=== PATIENT | female | born 1965 | race Caucasian/White ===

== ENCOUNTER 2017-05-05 13:09 | Emergency (ER) | payer OTHER, SELFPAY ==
[2017-05-05] MEDS ORDERED: DUONEB 0.5-3 MG/3 ml Neb IH ONE (13:46)
[2017-05-05] MEDS ORDERED: Zosyn 3.375GM/100 Ml D5W 3.375 GM/100 ML IVPB IV ONE ×2 (14:02→14:11)
--- NOTE | 2017-05-05 14:07 | ERPHSYRPT ---
- History of Present Illness Time Seen by Provider: 05/05/17 13:55 Source: patient Exam Limitations: clinical condition Patient Subjective Stated Complaint: PT REPORTS INCREASED SOB WITH UNPRODUCTIVE COUGH-STATES SHE CAN NOT GET A DEEP BREATH Triage Nursing Assessment: PT PINK WARM ET [id number] TO COMPELTE SENTENCES-RETRACTIONS NOTED-DIMINISHED ET WHEEZING Physician History: PATIENT WITH A HISTORY OR 30 PACK YEAR SMOKER COMPLAINS OF DIFFICULTY BREATHING , SHORTNESS OF BREATH AND A NONPRODUCTIVE COUGH FOR 3 WEEKS. DENIES CHEST PAIN OR FEVER. HAS NO RELIEF AFTER USING AN INHALER. Activities at Onset: activity Severity of Dyspnea-Max: severe Severity of Dyspnea-Current: severe Possible Cause: occasional episodes Modifying Factors: Improves With: coughing, deep breath, exertion Associated Symptoms: cough International travel in last 2 weeks: No Allergies/Adverse Reactions: No Known Drug Allergies Allergy (Verified 05/05/17 13:51) Home Medications: Alprazolam [Xanax 0.25 mg] 0.25 mg PO HS 07/27/14 [History] Hx Tetanus, Diphtheria Vaccination/Date Given: Yes Hx Influenza Vaccination/Date Given: No Hx Pneumococcal Vaccination/Date Given: No Immunizations Up to Date: Yes - Review of Systems Constitutional: No Fever, No Chills Eyes: No Symptoms Ears, Nose, & Throat: No Symptoms Respiratory: Cough, Dyspnea, Dyspnea on Exertion (CULP), Wheezing Cardiac: Orthopnea, No Chest Pain, No Edema, No Syncope Abdominal/Gastrointestinal: No Symptoms, No Abdominal Pain, No Nausea, No Vomiting, No Diarrhea Genitourinary Symptoms: No Symptoms, No Dysuria Musculoskeletal: No Symptoms, No Back Pain, No Neck Pain Skin: No Rash Neurological: No Dizziness, No Focal Weakness, No Sensory Changes Psychological: No Symptoms Endocrine: No Symptoms All Other Systems: Reviewed and Negative - Past Medical History Pertinent Past Medical History: Yes Neurological History: Migraines ENT History: No Pertinent History Cardiac History: Angina Respiratory History: No Pertinent History Endocrine Medical History: No Pertinent History Musculoskeletal History: Other GI Medical History: GERD History: No Pertinent History Psycho-Social History: Anxiety Female Reproductive Disorders: Ovarian Cancer Other Medical History: STRESS TEST <6MO AGO - Past Surgical History Past Surgical History: Yes Neuro Surgical History: No Pertinent History Cardiac: No Pertinent History Respiratory: No Pertinent History Gastrointestinal: No Pertinent History Genitourinary: No Pertinent History Musculoskeletal: No Pertinent History Female Surgical History: Section, Hysterectomy - Social History Smoking Status: Current every day smoker How long have you smoked: 30 Exposure to second hand smoke: Yes Alcohol Use: Socially Drug Use: methamphetamines Patient Lives Alone: No Significant Family History: other (migraines) - Female History Hx Now: No - Nursing Vital Signs Nursing Vital Signs: Initial Vital Signs O2 Sat by Pulse Oximetry 99 05/05/17 13:15 Pain Scale Pain Intensity 4 - Physical Exam General Appearance: mild distress Eye Exam: PERRL/EOMI Ears, Nose, Throat Exam: hearing grossly normal Neck Exam: normal inspection, supple Respiratory Exam: diminished breath sounds, prolonged expirations, wheezing ( DIFFUSE WHEEZES WITH RHONCHI), other (MODERATE TACHYPNEA, NO ACCESSORY MUSCLT USE) Cardiovascular/Chest Exam: normal heart sounds, regular rate/rhythm Abdominal/Gastrointestinal Exam: soft, normal bowel sounds, No tenderness, No distention, No mass Extremity Exam: non-tender, normal range of motion, normal inspection, no calf tenderness, no pedal edema Peripheral Pulses Exam: carotid (R): 2+, carotid (L): 2+, femoral (R): 2+, femoral (L): 2+, dorsalis-pedis (R): 2+, dorsalis-pedis (L): 2+ Neurologic Exam: alert, oriented x 3, cooperative, reporting specialist II-XII nml as tested, sensation nml, No motor deficits Skin Exam: normal color, warm, No dry SpO2 Interpretation: normal SpO2: 98 Oxygen Delivery: Nasal Cannula - Radiology Exams Chest X-ray Interpretation: Interpreted by me, Negative, No Infiltrates Ordered Tests: Active Orders 24 hr Category Date Time Status Counselor At Law STAT Care 05/05/17 14:01 Active EKG-ER Only STAT Care 05/05/17 14:14 Active IV Insertion STAT Care 05/05/17 13:59 Active Oxygen-ED Only NASAL CANNULA 2 lpm Care 05/05/17 14:00 Active CHEST 2 VIEWS (PA AND LAT) Stat Exams 05/05/17 14:14 Taken BLOOD CULTURE Stat Lab 05/05/17 14:20 Received CBC W DIFF Stat Lab 05/05/17 14:15 Completed CMP Stat Lab 05/05/17 14:15 Completed MAGNESIUM Stat Lab 05/05/17 14:15 Completed Peak Expiratory Flow Rate ONCE RT 05/05/17 14:19 Active Respiratory Nebulizer STAT RT 05/05/17 14:18 Active Medication Summary Discontinued Medications Generic Name Dose Route Start Last Admin Trade Name Rosaura PRN Reason Stop Dose Admin Albuterol Sulfate 10 mg 05/05/17 14:14 Proventil 2.5 Mg/3 Ml Neb IH 05/05/17 14:15 STAT ONE Albuterol/Ipratropium Confirm 05/05/17 13:46 Duoneb 0.5-3 Mg/3 Ml Neb Administered 05/05/17 13:47 Dose 3 ml IH .STK-MED ONE Piperacillin Sod/Tazobactam Sod 3.375 gm in 100 mls @ 200 mls/hr 05/05/17 14: 02 05/05/17 14:15 Zosyn 3.375gm/100 Ml D5w IV 05/05/17 14:31 200 mls/hr STAT ONE Administration Piperacillin Sod/Tazobactam Sod Confirm 05/05/17 14:11 Zosyn 3.375gm/100 Ml D5w Administered 05/05/17 14:12 Dose 3.375 gm in 100 mls @ ud IV .STK-MED ONE Sodium Chloride 1,000 mls @ 999 mls/hr 05/05/17 14:14 05/05/17 15:00 Sodium Chloride 0.9% 1000 Ml IV 05/05/17 15:14 999 mls/hr .Q1H1M STA Administration Azithromycin 500 mg in 250 mls @ 250 mls/hr 05/05/17 14:14 05/05/17 15:01 Zithromax 500 Mg/ 250 Ml Nacl Premix IV 05/05/17 15:13 250 mls/hr STAT STA Administration Azithromycin Confirm 05/05/17 14:55 Zithromax 500 Mg/ 250 Ml Nacl Premix Administered 05/05/17 14:56 Dose 500 mg in 250 mls @ ud IV .STK-MED ONE Sodium Chloride Confirm 05/05/17 14:55 Sodium Chloride 0.9% 1000 Ml Administered 05/05/17 14:56 Dose 1,000 mls @ ud .ROUTE .STK-MED ONE Methylprednisolone Sodium Succinate 125 mg 05/05/17 14:14 05/05/17 15:01 Solu-Medrol 125 Mg IV 05/05/17 14:15 125 mg STAT ONE Administration Methylprednisolone Sodium Succinate Confirm 05/05/17 14:55 Solu-Medrol 125 Mg Administered 05/05/17 14:56 Dose 125 mg .ROUTE .STK-MED ONE Lab/Rad Data: Laboratory Result Diagrams 05/05/17 14:15 05/05/17 14:15 Laboratory Results 05/05/17 05/05/17 Range/Units 14:15 14:15 WBC 8.3 (4.0-10.5) K/mm3 RBC 4.55 (4.1-5.4) M/mm3 Hgb 13.9 (12.0-16.0) gm/dl Hct 40.5 (35-47) % MCV 89.0 (78-100) fl MCH 30.5 (26-32) pg MCHC 34.3 (32-36) g/dl RDW 12.7 (11.5-14.0) % Plt Count 282 (150-450) K/mm3 MPV 9.5 (6-9.5) fl Gran % 44.6 (36.0-66.0) % Lymphocytes % 40.0 (24.0-44.0) % Monocytes % 7.1 (0.0-12.0) % Eosinophils % 8.2 H (0.00-5.0) % Basophils % 0.1 (0.0-0.4) % Basophils # 0.01 (0-0.4) Sodium 142 (136-145) mEq/L Potassium 4.0 (3.5-5.1) mEq/L Chloride 105 (98-107) mEq/L Carbon Dioxide 25.0 (21-32) mEq/L Anion Gap 15.6 H (5-15) MEQ/L BUN 14 (9-20) mg/dL Creatinine 0.73 (0.55-1.30) mg/dl Estimated GFR > 60 ML/MIN Glucose 93 (70-110) MG/DL Calcium 9.4 (8.5-10.1) mg/dL Magnesium 2.0 (1.8-2.4) mg/dL Total Bilirubin 0.40 (0.2-1.0) mg/dL AST 28 (15-37) U/L ALT 43 (12-78) U/L Alkaline Phosphatase 99 (46-116) U/L Serum Total Protein 7.9 (6.4-8.2) gm/dL Albumin 4.2 (3.4-5.0) g/dL - Progress Progress Note: 05/05/17 14:26 ADMINISTERED A DUO NEB AEROSOL TX FOLLOWED BY A CONTINUOUS ALBUTEROL 10MG OVER 1 HOUR, IV NORMAL SALINE 1 LILTER BOLUS OVER 1 HOUR, SOLUMEDROL 125MG IV, BLOOD CULTURES X 2 ZOSYN 3.375GM AND ZITHROMAX 500MG IVPB. PEAK FLOW PRE-300, POST-315 05/05/17 16:55 SENT HOME WITH NEBULIZER MACHINE 05/05/17 17:02 Counseled pt/family regarding: lab results, diagnosis, need for follow-up, rad results - Departure Time of Disposition: 17:10 Departure Disposition: Home Clinical Impression: ACUTE BRONCHITIS WITH BRONCHIOSPASM Condition: Stable Critical Care Time: No Referrals: ADRIANA KIRKPATRICK MD [Primary Care Provider] - Additional Instructions: BEGIN ALBUTEROL AEROSOL TREATMENTS EVERY 4 HOURS FOR BREATHING DIFFICULTY. PREDNISONE 20MG, 2 TABLETS DAILY FOR 5 DAYS. ANTIBIOTIC AUGMENTIN 875MG TWICE DAILY FOR 10 DAYS. TAKE OVER THE COUNTER EXPECTORANT COUGH SYRUP EVERY 4 HOURS NEEDED. CONSULT YOUR PRIMARY CARE PHYSICIAN TOMORROW TO SCHEDULE APPOINTMENT. Prescriptions: Albuterol 2.5 mg/3 ml Neb [Proventil 2.5 mg/3 ml Neb] 2.5 mg IH Q4H PRN PRN #30 neb PRN Reason: DIFFICULTY BREATHING Amox Tr/Potass Clav. 875 mg [Augmentin 875-125 Tablet] 875 mg PO BID #20 tablet Prednisone 20 mg [Deltasone 20 mg] 2 tab PO DAILY #10 tablet
[2017-05-05] MEDS ORDERED: PROVENTIL 2.5 MG/3 ML NEB IH ONE (14:14)
[2017-05-05] MEDS ORDERED: Sodium Chloride 0.9% 1000 ML 1,000 ML IV STA (14:14)
[2017-05-05] MEDS ORDERED: Zithromax 500 MG/ 250 ML NaCl Premix 500 MG/250 ML IVPB IV STA (14:14)
[2017-05-05] MEDS ORDERED: solu-MEDROL 125 MG IV ONE (14:14)
[2017-05-05 14:36] LABS: BASOPHIL % 0.1 % (0.0-0.4); Eosinophil % 8.2 % (0.00-5.0); Granulocytes % 44.6 % (36.0-66.0); Mean Corpuscular Hemoglobin 30.5 pg (26-32); Mean Platelet Volume 9.5 fl (6-9.5); Monocytes % 7.1 % (0.0-12.0); Platelet Count 282 K/mm3 (150-450); Red Blood Count 4.55 M/mm3 (4.1-5.4); Red Cell Distribution Width 12.7 % (11.5-14.0); White Blood Count 8.3 K/mm3 (4.0-10.5)
[2017-05-05] MEDS ORDERED: Zithromax 500 MG/ 250 ML NaCl Premix 500 MG/250 ML IVPB IV ONE (14:55)
[2017-05-05] MEDS ORDERED: Sodium Chloride 0.9% 1000 ML 1,000 ML ONE (14:55)
[2017-05-05] MEDS ORDERED: solu-MEDROL 125 MG ONE (14:55)
[2017-05-05 14:57] LABS: ALBUMIN 4.2 g/dL (3.4-5.0); ALKALINE PHOSPHATASE 99 U/L (46-116); ANION GAP 15.6 MEQ/L (5-15); BLOOD UREA NITROGEN 14 mg/dL (9-20); CHLORIDE 105 mEq/L (98-107); Glucose 93 MG/DL (70-110); SGOT/AST 28 U/L (15-37); SGPT/ALT 43 U/L (12-78); SODIUM 142 mEq/L (136-145); Total Protein 7.9 gm/dL (6.4-8.2)
[2017-05-05 15:56] VITALS: BP 121/84; PULSE 76
[2017-05-05 17:19] VITALS: O2SAT 98
--- NOTE | 2017-05-05 20:56 | XRAY ---
Indication: Short of breath. Comparison: December 17, 2014. PA/lateral chest again demonstrates normal heart and lungs. Bony thorax intact.
== END 2017-05-05 17:50 | disposition home or self-care (01) ==
LOC: ED 13:09
DX: J20.9 Acute bronchitis, unspecified (principal); R05 Cough; R06.00 Dyspnea, unspecified; R06.2 Wheezing; F17.200 Nicotine dependence, unspecified, uncomplicated
CPT/HCPCS: 36000; 36415; 71020; 80053; 83735; 85025; 87040; 93005; 93041; 94150; 94640; 96360; 96361; 96365; 96366; 96367; 96374; 99285; J0456; J2543; J2930; A9270-GY

== ENCOUNTER 2018-02-04 15:08 | Inpatient (IN) | payer OTHER ==
[2018-02-04] MEDS ORDERED: DUONEB 0.5-3 MG/3 ml Neb IH ONE ×4 (15:27→16:18)
[2018-02-04] MEDS ORDERED: solu-MEDROL 125 MG IV ONE (15:36)
[2018-02-04] MEDS ORDERED: solu-MEDROL 125 MG ONE (15:56)
--- NOTE | 2018-02-04 16:03 | ERPHSYRPT ---
- History of Present Illness Time Seen by Provider: 02/04/18 15:36 Source: patient Exam Limitations: no limitations Patient Subjective Stated Complaint: increasing sob over the past 7 days. hx pleurisy in the recent past. has been using neb and inhaler at home without relief. denies fever. sharp pain to right lat ribs when coughing. Triage Nursing Assessment: ambulated to room per self. skin w/d, color normal, resp labored at 24. exp wheezes throughout. occ dry cough. Physician History: Pt has been c/o nonproductive cough, increasing SOB for 7 days, denies fever, chills, chest pain, nausea, vomiting, other complaints. She denies cardiac problems, once she had cardiac catheterization 5 years ago, it was negative. She has been suing her Albuterol inhaler and nebulizer regularly, but no relief , she became worse today. Timing/Duration: day(s) (7) Activities at Onset: none Severity of Dyspnea-Max: moderate Severity of Dyspnea-Current: moderate Possible Cause: occasional episodes Modifying Factors: Improves With: albuterol inhaler, albuterol nebulizer Associated Symptoms: cough, wheezing Allergies/Adverse Reactions: No Known Drug Allergies Allergy (Verified 02/04/18 15:26) Home Medications: Albuterol Sulfate [Ventolin Hfa] 8 gm IH QID 02/04/18 [History] Duloxetine HCl 30 mg [Cymbalta 30 MG Capsule] 30 mg PO BID 02/04/18 [ History] Hydrocodone/Acetaminophen [Hydrocodon-Acetaminophen 5-325] 1 each .ROUTE Q6HPRN PRN 02/04/18 [History] Loratadine 10 mg [Claritin 10 mg] 10 mg PO DAILY 02/04/18 [History] Hx Tetanus, Diphtheria Vaccination/Date Given: Yes Hx Influenza Vaccination/Date Given: No Hx Pneumococcal Vaccination/Date Given: Yes - Review of Systems Constitutional: No Symptoms Ears, Nose, & Throat: Ear Pain Respiratory: Cough, Dyspnea All Other Systems: Reviewed and Negative - Past Medical History Pertinent Past Medical History: Yes Neurological History: Migraines ENT History: No Pertinent History Cardiac History: Angina Respiratory History: No Pertinent History Endocrine Medical History: No Pertinent History Musculoskeletal History: Other GI Medical History: GERD History: No Pertinent History Psycho-Social History: Anxiety Female Reproductive Disorders: Ovarian Cancer Other Medical History: STRESS TEST <6MO AGO - Past Surgical History Past Surgical History: Yes Neuro Surgical History: No Pertinent History Cardiac: No Pertinent History Respiratory: No Pertinent History Gastrointestinal: No Pertinent History Genitourinary: No Pertinent History Musculoskeletal: No Pertinent History Female Surgical History: Section, Hysterectomy - Social History Smoking Status: Former smoker How long have you smoked: 30 Exposure to second hand smoke: Yes Alcohol Use: Socially Drug Use: methamphetamines Patient Lives Alone: No Significant Family History: other (migraines) - Female History Hx Now: No - Nursing Vital Signs Nursing Vital Signs: Initial Vital Signs Temperature 98.5 F 02/04/18 15:18 Pulse Rate 94 H 02/04/18 15:18 Respiratory Rate 24 02/04/18 15:18 Blood Pressure 142/83 02/04/18 15:18 O2 Sat by Pulse Oximetry 92 L 02/04/18 15:18 Pain Scale Pain Intensity 6 - Physical Exam General Appearance: no apparent distress Eye Exam: eyes nml inspection Ears, Nose, Throat Exam: hearing grossly normal, normal ENT inspection, normal pharynx, No abnormal TM (R), No abnormal TM (L) Neck Exam: normal inspection, non-tender, supple, No carotid bruit, No JVD Respiratory Exam: chest tenderness, airway intact, rhonchi, wheezing (bilateral end expiratory rhonchi and wheezing), No respiratory distress, No accessory muscle use Cardiovascular/Chest Exam: normal heart sounds, regular rate/rhythm, normal peripheral pulses, No murmur, No edema, No JVD Abdominal/Gastrointestinal Exam: soft, normal bowel sounds, No tenderness Extremity Exam: non-tender, no pedal edema, No no calf tenderness, No mine's sign Peripheral Pulses Exam: dorsalis-pedis (R): 3+, dorsalis-pedis (L): 3+ Neurologic Exam: alert, oriented x 3, cooperative, normal mood/affect Skin Exam: normal color, warm, dry, No rash Lymphatic Exam: No adenopathy SpO2 Interpretation: normal SpO2: 95 Oxygen Delivery: Room Air - Course Nursing assessment & vital signs reviewed: Yes EKG Interpreted by Me: RATE (84/min), NORMAL AXIS, NORMAL INTERVALS, Non- specific ST Changes - Radiology Exams Chest X-ray Interpretation: Interpreted by me, Reviewed by me, Negative Ordered Tests: Active Orders 24 hr Category Date Time Status [place] Supervisor STAT Care 02/04/18 15:37 Active EKG-ER Only STAT Care 02/04/18 15:36 Active EKG-ER Only STAT Care 02/04/18 18:06 Active IV Insertion STAT Care 02/04/18 15:36 Active Oxygen-ED Only NASAL CANNULA 2 lpm Care 02/04/18 15:36 Active CHEST 1 VIEW (PORTABLE) Stat Exams 02/04/18 15:37 Completed ARTERIAL BLOOD GASES Stat Lab 02/04/18 18:30 Results BLOOD CULTURE Stat Lab 02/04/18 16:06 Received CBC W DIFF Stat Lab 02/04/18 16:10 Completed CMP Stat Lab 02/04/18 16:10 Completed D-DIMER QUANTITATION Stat Lab 02/04/18 16:49 Completed Lactic Acid Stat Lab 02/04/18 16:25 Completed MAGNESIUM Stat Lab 02/04/18 16:10 Completed NT PRO BNP Stat Lab 02/04/18 16:10 Completed TROPONIN Q3H Lab 02/04/18 16:10 Completed TROPONIN Q3H Lab 02/04/18 18:45 Ordered TROPONIN Q3H Lab 02/04/18 21:45 Ordered TROPONIN Q3H Lab 02/05/18 00:45 Ordered TROPONIN Q3H Lab 02/05/18 03:45 Ordered Respiratory Nebulizer STAT RT 02/04/18 15:33 Completed Respiratory Nebulizer STAT RT 02/04/18 15:37 Completed Medication Summary Discontinued Medications Generic Name Dose Route Start Last Admin Trade Name Freq PRN Reason Stop Dose Admin Albuterol/Ipratropium Confirm 02/04/18 15:27 Duoneb 0.5-3 Mg/3 Ml Neb Administered 02/04/18 15:28 Dose 3 ml IH .STK-MED ONE Albuterol/Ipratropium 3 ml 02/04/18 15:32 02/04/18 15:33 Duoneb 0.5-3 Mg/3 Ml Neb IH 02/04/18 15:33 3 ml STAT ONE Administration Albuterol/Ipratropium 3 ml 02/04/18 15:36 02/04/18 16:21 Duoneb 0.5-3 Mg/3 Ml Neb IH 02/04/18 15:37 3 ml STAT ONE Administration Albuterol/Ipratropium Confirm 02/04/18 16:18 Duoneb 0.5-3 Mg/3 Ml Neb Administered 02/04/18 16:19 Dose 3 ml IH .STK-MED ONE Ketorolac Tromethamine 30 mg 02/04/18 16:49 02/04/18 17:06 Toradol 30 Mg Injection IV 02/04/18 16:50 30 mg STAT ONE Administration Ketorolac Tromethamine Confirm 02/04/18 17:05 Toradol 30 Mg Injection Administered 02/04/18 17:06 Dose 30 mg .ROUTE .STK-MED ONE Methylprednisolone Sodium Succinate 125 mg 02/04/18 15:36 02/04/18 16:02 Solu-Medrol 125 Mg IV 02/04/18 15:37 125 mg STAT ONE Administration Methylprednisolone Sodium Succinate Confirm 02/04/18 15:56 Solu-Medrol 125 Mg Administered 02/04/18 15:57 Dose 125 mg .ROUTE .STK-MED ONE Lab/Rad Data: Laboratory Result Diagrams 02/04/18 16:10 02/04/18 16:10 Laboratory Results 02/04/18 02/04/18 02/04/18 Range/Units 18:30 16:49 16:25 WBC (4.0-10.5) K/mm3 RBC (4.1-5.4) M/mm3 Hgb (12.0-16.0) gm/dl Hct (35-47) % MCV (78-100) fl MCH (26-32) pg MCHC (32-36) g/dl RDW (11.5-14.0) % Plt Count (150-450) K/mm3 MPV (6-9.5) fl Gran % (36.0-66.0) % Eos # (Auto) (0-0.5) Absolute Lymphs (auto) (1.0-4.6) Absolute Monos (auto) (0.0-1.3) Lymphocytes % (24.0-44.0) % Monocytes % (0.0-12.0) % Eosinophils % (0.00-5.0) % Basophils % (0.0-0.4) % Absolute Granulocytes (1.4-6.9) Basophils # (0-0.4) D-Dimer 312 (215-500) ng/mL Puncture Site Pending pCO2 38 (35-45) mmHg pO2 64 L (75-100) mmHg Base Excess 1.7 (-2.0-2.0) O2 Saturation 92.7 L (94-100) g/dF ABG pH 7.44 (7.35-7.45) ABG HCO3 25.8 (22-28) ABG O2 Sat (Measured) 95.9 (95-100) % Lebron Test Pending A-a Gradient 38 a/A Ratio 0.63 Hemoglobin 13.6 Carboxyhemoglobin 2.0 (0.0-6.9) % THgb Methemoglobin 1.2 L (1.4-1.5) % Temperature 37.0 C POC O2 Flow Rate 21 % Sodium (137-145) mmol/L Potassium 3.7 (3.5-5.1) mmol/L Chloride (98-107) mmol/L Carbon Dioxide (22-30) mmol/L Anion Gap (5-15) MEQ/L BUN (7-17) mg/dL Creatinine (0.52-1.04) mg/dL Estimated GFR ML/MIN Glucose (74-106) mg/dL Lactic Acid 1.1 (0.4-2.0) Calcium (8.4-10.2) mg/dL Magnesium (1.6-2.3) mg/dL Total Bilirubin (0.2-1.3) mg/dL AST (14-36) U/L ALT (0-35) U/L Alkaline Phosphatase (38-126) U/L Troponin I (0.000-0.034) ng/mL NT-Pro-B Natriuret Pep (0-900) pg/mL Serum Total Protein (6.3-8.2) g/dL Albumin (3.5-5.0) g/dL 02/04/18 02/04/18 02/04/18 Range/Units 16:10 16:10 16:10 WBC 9.9 (4.0-10.5) K/mm3 RBC 4.53 (4.1-5.4) M/mm3 Hgb 13.6 (12.0-16.0) gm/dl Hct 40.2 (35-47) % MCV 88.7 (78-100) fl MCH 30.0 (26-32) pg MCHC 33.8 (32-36) g/dl RDW 13.1 (11.5-14.0) % Plt Count 312 (150-450) K/mm3 MPV 9.1 (6-9.5) fl Gran % 44.1 (36.0-66.0) % Eos # (Auto) 1.25 H (0-0.5) Absolute Lymphs (auto) 3.45 (1.0-4.6) Absolute Monos (auto) 0.80 (0.0-1.3) Lymphocytes % 34.9 (24.0-44.0) % Monocytes % 8.1 (0.0-12.0) % Eosinophils % 12.6 H (0.00-5.0) % Basophils % 0.3 (0.0-0.4) % Absolute Granulocytes 4.36 (1.4-6.9) Basophils # 0.03 (0-0.4) D-Dimer (215-500) ng/mL Puncture Site pCO2 (35-45) mmHg pO2 (75-100) mmHg Base Excess (-2.0-2.0) O2 Saturation (94-100) g/dF ABG pH (7.35-7.45) ABG HCO3 (22-28) ABG O2 Sat (Measured) (95-100) % Lebron Test A-a Gradient a/A Ratio Hemoglobin Carboxyhemoglobin (0.0-6.9) % THgb Methemoglobin (1.4-1.5) % Temperature C POC O2 Flow Rate % Sodium 142 (137-145) mmol/L Potassium 3.8 (3.5-5.1) mmol/L Chloride 104 (98-107) mmol/L Carbon Dioxide 26 (22-30) mmol/L Anion Gap 15.6 H (5-15) MEQ/L BUN 16 (7-17) mg/dL Creatinine 0.61 (0.52-1.04) mg/dL Estimated GFR > 60.0 ML/MIN Glucose 98 (74-106) mg/dL Lactic Acid (0.4-2.0) Calcium 10.0 (8.4-10.2) mg/dL Magnesium 2.0 (1.6-2.3) mg/dL Total Bilirubin 0.50 (0.2-1.3) mg/dL AST 31 (14-36) U/L ALT 33 (0-35) U/L Alkaline Phosphatase 98 (38-126) U/L Troponin I < 0.012 (0.000-0.034) ng/mL NT-Pro-B Natriuret Pep 47.3 (0-900) pg/mL Serum Total Protein 8.2 (6.3-8.2) g/dL Albumin 4.8 (3.5-5.0) g/dL - Progress Progress: improved Air Movement: good Progress Note: 02/04/18 19:09 Improved after iv Solumedrol and Duoneb treatment x2, she has been afebrile, no severe distress,I called Dr Horn, covering dr Kirkpatrick, labs and ABG reviewed with her, she agreed to admit this patient for observation. I informed patient, she agreed. Blood Culture(s) Obtained: Yes Antibiotics given: Yes Discussed with : Kory Will see patient in: hospital (observation) Counseled pt/family regarding: lab results, diagnosis, need for follow-up, rad results - Departure Time of Disposition: 19:12 Departure Disposition: Observation Clinical Impression: COPD (chronic obstructive pulmonary disease) with acute bronchitis Condition: Stable Critical Care Time: No Referrals: ADRIANA KIRKPATRICK MD [Primary Care Provider] - Instructions: Chronic Obstructive Pulmonary Disease
--- NOTE | 2018-02-04 16:08 | XRAY ---
Indication: Dyspnea. Comparison: September 23, 2017. Portable apical lordotic chest again demonstrates normal heart and lungs. Bony thorax intact. No new/acute findings.
[2018-02-04 16:31] LABS: BASOPHIL % 0.3 % (0.0-0.4); Basophil (Absolute #) 0.03 (0-0.4); Eosinophil % 12.6 % (0.00-5.0); Eosinophil (Absolute #) 1.25 (0-0.5); Granulocyte Absolute (ANC) 4.36 (1.4-6.9); Granulocytes % 44.1 % (36.0-66.0); Hematocrit 40.2 % (35-47); Hemoglobin 13.6 gm/dl (12.0-16.0); Lymphocyte (Absolute #) 3.45 (1.0-4.6); Lymphocytes % 34.9 % (24.0-44.0); Mean Cell Volume 88.7 fl (78-100); Mean Corpuscular Hgb Concent. 33.8 g/dl (32-36); Mean Platelet Volume 9.1 fl (6-9.5); Monocytes % 8.1 % (0.0-12.0); Platelet Count 312 K/mm3 (150-450); Red Blood Count 4.53 M/mm3 (4.1-5.4); Red Cell Distribution Width 13.1 % (11.5-14.0); White Blood Count 9.9 K/mm3 (4.0-10.5)
[2018-02-04 16:49] LABS: ALBUMIN 4.8 g/dL (3.5-5.0); ALKALINE PHOSPHATASE 98 U/L (38-126); ANION GAP 15.6 MEQ/L (5-15); BLOOD UREA NITROGEN 16 mg/dL (7-17); CHLORIDE 104 mmol/L (98-107); Carbon Dioxide 26 mmol/L (22-30); Creatinine 1 0.61 mg/dL (0.52-1.04); Glucose 98 mg/dL (74-106); Potassium 3.8 mmol/L (3.5-5.1); SGOT/AST 31 U/L (14-36); SGPT/ALT 33 U/L (0-35); SODIUM 142 mmol/L (137-145); Total Protein 8.2 g/dL (6.3-8.2)
[2018-02-04] MEDS ORDERED: TORAdol 30 mg Injection IV ONE (16:49)
[2018-02-04 16:58] LABS: NT PRO BNP 47.3 pg/mL (0-900)
[2018-02-04] MEDS ORDERED: TORAdol 30 mg Injection ONE (17:05)
[2018-02-04 18:37] LABS: A-aADO2 38; ABG HEMOGLOBIN 13.6; ABG POTASSIUM 3.7 (3.5-5.1); ARTERIAL BLD GAS O2 SATURATION 95.9 % (95-100); ARTERIAL BLOOD GAS BASE EXCESS 1.7 (-2.0-2.0); ARTERIAL BLOOD GAS FIO2 21 %; ARTERIAL BLOOD GAS PCO2 38 mmHg (35-45); ARTERIAL BLOOD GAS PO2 64 mmHg (75-100); ARTERIAL BLOOD GAS pH 7.44 (7.35-7.45); HCO3- 25.8 (22-28); HGB O2 SAT 92.7 g/dF (94-100); Methhemoglobin 1.2 % (1.4-1.5); paO2 pAO1 0.63
[2018-02-04] MEDS ORDERED: Zithromax 500 MG/ 250 ML NaCl Premix 500 MG/250 ML IVPB IV STA (19:11)
[2018-02-04] MEDS ORDERED: Zithromax 500 MG/ 250 ML NaCl Premix 500 MG/250 ML IVPB IV ONE (19:19)
[2018-02-04] MEDS: DUONEB 0.5-3 MG/3 ml Neb IH SCH (22:09)
[2018-02-04] MEDS ORDERED: Cymbalta 30 MG Capsule ONE (22:41)
[2018-02-04] MEDS: NORCO 5/325 MG PO PRN (22:43)
[2018-02-04] MEDS: Pepcid 20 MG PO SCH (22:43)
[2018-02-05] MEDS: solu-MEDROL 125 MG IV SCH ×5 (00:23→23:13)
[2018-02-05 04:15] LABS: Hematocrit 37.2 % (35-47); Hemoglobin 12.5 gm/dl (12.0-16.0); Mean Cell Volume 89.4 fl (78-100); Mean Corpuscular Hgb Concent. 33.6 g/dl (32-36); Mean Platelet Volume 9.2 fl (6-9.5); Platelet Count 279 K/mm3 (150-450); Red Blood Count 4.16 M/mm3 (4.1-5.4); Red Cell Distribution Width 13.1 % (11.5-14.0)
[2018-02-05 04:31] LABS: ANION GAP 16.7 MEQ/L (5-15); BLOOD UREA NITROGEN 13 mg/dL (7-17); CHLORIDE 105 mmol/L (98-107); Calcium 9.6 mg/dL (8.4-10.2); Carbon Dioxide 23 mmol/L (22-30); Creatinine 1 0.51 mg/dL (0.52-1.04); Glucose 136 mg/dL (74-106); Potassium 4.3 mmol/L (3.5-5.1); SODIUM 140 mmol/L (137-145)
[2018-02-05 04:53] LABS: ABG SITE RIGHT RADIAL; ALLEN TEST OK? YES
[2018-02-05] MEDS ORDERED: PROVENTIL COMMON CANISTER IH PRN (07:00)
[2018-02-05] MEDS: DUONEB 0.5-3 MG/3 ml Neb IH SCH ×6 (07:26→23:07)
[2018-02-05] MEDS: NORCO 5/325 MG PO PRN ×3 (07:52→22:20)
[2018-02-05] MEDS: Pepcid 20 MG PO SCH ×2 (09:05→22:20)
[2018-02-05] MEDS: CLARITIN 10 MG PO SCH (09:05)
[2018-02-05] MEDS: Cymbalta 30 MG Capsule PO SCH ×2 (09:14→22:20)
[2018-02-05] MEDS ORDERED: Ventolin Hfa MDI IH SCH (10:00)
[2018-02-05] MEDS: ENOXAPARIN SODIUM SQ SCH (10:44)
[2018-02-05] MEDS: Zithromax 500 MG/ 250 ML NaCl Premix 500 MG/250 ML IVPB IV SCH (18:32)
[2018-02-05] MEDS ORDERED: Cymbalta 30 MG Capsule PO SCH (22:00)
[2018-02-06] MEDS: DUONEB 0.5-3 MG/3 ml Neb IH SCH ×6 (03:02→23:05)
[2018-02-06] MEDS: solu-MEDROL 125 MG IV SCH ×4 (05:24→23:52)
[2018-02-06] MEDS: NORCO 5/325 MG PO PRN ×3 (07:03→18:48)
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
--- NOTE | 2018-02-06 07:54 | PCM.HP ---
History of Present Illness - Chief Complaint Chief Complaint: Shortness of Breath History of Present Illness: is a 52 year old female who presented to the ER yesterday with several days of cough, shortness of breath and wheezing. She felt tight in her chest like she couldn't get enough air in her lungs and was winded with minimal exertion. Cough has been nonproductive, no fever. - Review of Systems Constitutional: No Fever, No Chills Respiratory: Cough, Short Of Breath, Wheezing Cardiac: No Chest Pain, No Edema, No Syncope Abdominal/Gastrointestinal: No Abdominal Pain, No Nausea, No Vomiting, No Diarrhea Genitourinary Symptoms: No Dysuria Skin: No Rash All Other Systems: Reviewed and Negative Medications & Allergies Home Medications: Home Medication List Albuterol 2.5 mg/3 ml Neb [Proventil 2.5 mg/3 ml Neb] 2.5 mg IH Q4H PRN PRN #30 neb 05/05/17 [Rx Confirmed 02/04/18] Albuterol Sulfate [Ventolin Hfa] 8 gm IH QID 02/04/18 [History Confirmed ] Duloxetine HCl 30 mg [Cymbalta 30 MG Capsule] 30 mg PO BID 02/04/18 [ History Confirmed 02/04/18] Hydrocodone/Acetaminophen [Hydrocodon-Acetaminophen 5-325] 1 each .ROUTE Q6HPRN PRN 02/04/18 [History Confirmed 02/04/18] Loratadine 10 mg [Claritin 10 mg] 10 mg PO DAILY 02/04/18 [History Confirmed 02/04/18] Allergies/Adverse Reactions: Allergies Allergy/AdvReac Type Severity Reaction Status Date / Time No Known Drug Allergies Allergy Verified 02/04/18 15:26 - Past Medical History Past Medical History: Yes Neurological History: Migraines ENT History: No Pertinent History Cardiac History: Angina Respiratory History: COPD Endocrine Medical History: No Pertinent History Musculoskelatal History: Other GI Medical History: GERD History: No Pertinent History Pyscho-Social History: Anxiety Reproductive Disorders: Ovarian Cancer Comment: STRESS TEST <6MO AGO - Female History Are you now?: No - Past Surgical History Past Surgical History: Yes Neuro Surgical History: No Pertinent History Cardiac History: No Pertinent History Respiratory Surgery: No Pertinent History GI Surgical History: No Pertinent History Genitourinary Surgical Hx: No Pertinent History Musculskeletal Surgical Hx: No Pertinent History Female Surgical History: Section, Hysterectomy - Social History Smoking Status: Former smoker How long have you smoked: 30 Exposure to second hand smoke: No Alcohol: Rarely Drug Use: methamphetamines Significant Family History: other (migraines) - Physical Exam Vital Signs: Vital Signs - 24 hr Temp Pulse Resp BP Pulse Ox 02/06/18 07:48 21 02/06/18 07:17 98 F 101 H 20 145/79 96 02/06/18 07:00 104 H 18 94 L 02/06/18 04:00 98.4 F 100 H 19 181/81 92 L 02/06/18 03:02 100 H 19 92 L 02/06/18 00:00 97.9 F 100 H 19 170/83 92 L 02/05/18 23:07 100 H 19 92 L 02/05/18 20:00 97.7 F 107 H 19 143/72 95 02/05/18 18:55 100 H 18 92 L 02/05/18 16:00 98.5 F 111 H 18 139/74 91 L 02/05/18 14:53 104 H 20 92 L 02/05/18 12:00 97.8 F 116 H 18 126/76 95 02/05/18 11:08 102 H 20 92 L General Appearance: no apparent distress, alert Eye Exam: PERRL/EOMI, eyes nml inspection Respiratory Exam: prolonged expirations, wheezing Cardiovascular Exam: regular rate/rhythm, normal heart sounds, normal peripheral pulses Gastrointestinal/Abdomen Exam: soft, normal bowel sounds, No tenderness, No mass Extremity Exam: normal inspection, normal range of motion, pelvis stable Skin Exam: normal color, warm, dry, No rash Results - Labs Lab/Micro Results: Microbiology 02/04/18 16:06 Blood Culture - Preliminary Blood NO GROWTH TO DATE 02/04/18 16:06 Blood Culture - Preliminary Blood NO GROWTH TO DATE - Radiology Impressions Radiology Exams & Impressions: Radiology Procedures Category Date Time Status CHEST 1 VIEW (PORTABLE) Stat Exams 02/04/18 15:37 Completed - Other Procedures and Tests Respiratory Therapy 02/05/18 07:00 Respiratory MDI UD Assessment/Plan (1) Acute exacerbation of chronic obstructive pulmonary disease (COPD) Current Visit: Yes Status: Acute Assessment & Plan: continue IV zithromax, solu medrol and nebulizer treatments. oxygen saturation ok on room air but significant wheezing present on lung exam Code(s): J44.1 - CHRONIC OBSTRUCTIVE PULMONARY DISEASE W (ACUTE) EXACERBATION
[2018-02-06] MEDS: Pepcid 20 MG PO SCH ×2 (09:24→22:37)
[2018-02-06] MEDS: ENOXAPARIN SODIUM SQ SCH (09:24)
[2018-02-06] MEDS: Cymbalta 30 MG Capsule PO SCH ×2 (09:24→22:37)
[2018-02-06] MEDS: CLARITIN 10 MG PO SCH (09:24)
[2018-02-06] MEDS: Zithromax 500 MG/ 250 ML NaCl Premix 500 MG/250 ML IVPB IV SCH (09:24)
[2018-02-06] MEDS ORDERED: CEPACOL SORE THROAT LOZENGE PO PRN (15:03)
[2018-02-06] MEDS: Tussionex Pennkinetic Susp PO PRN (15:16)
[2018-02-07] MEDS: DUONEB 0.5-3 MG/3 ml Neb IH SCH ×6 (03:08→23:10)
[2018-02-07] MEDS: NORCO 5/325 MG PO PRN ×3 (04:35→17:41)
[2018-02-07] MEDS: Tussionex Pennkinetic Susp PO PRN ×2 (04:42→16:18)
[2018-02-07] MEDS: solu-MEDROL 125 MG IV SCH ×4 (05:02→23:28)
--- NOTE | 2018-02-07 08:41 | PCM.NOTE ---
Date and Time: 02/07/18 0840 Subjective Assessment: still wheezing and not tolerating activity very well. notes some improvement since admission Objective Exam General Appearance: no apparent distress, alert Respiratory Exam: wheezing Cardiovascular Exam: regular rate/rhythm, normal heart sounds Gastrointestinal/Abdomen Exam: soft, No tenderness, No mass Extremity Exam: normal inspection, normal range of motion OBJECTIVE DATA Vital Signs: Vital Signs - 24 hr Temp Pulse Resp BP Pulse Ox 02/07/18 08:00 18 02/07/18 07:12 98.5 F 92 H 18 178/77 95 02/07/18 06:39 96 H 18 95 02/07/18 04:00 98.2 F 84 16 154/79 93 L 02/07/18 03:09 97 H 18 95 02/07/18 00:00 97.7 F 76 18 144/80 93 L 02/06/18 23:05 76 18 93 L 02/06/18 20:00 98.4 F 98 H 18 169/74 94 L 02/06/18 19:33 82 20 90 L 02/06/18 16:06 98.6 F 96 H 20 138/70 94 L 02/06/18 16:00 20 02/06/18 15:04 95 H 16 94 L 02/06/18 12:00 22 02/06/18 11:25 97.7 F 94 H 22 156/76 97 02/06/18 10:56 88 20 95 Pain Assessment - Last Documented Pain Intensity 5 Pain Scale Used 0-10 Pain Scale Intake and Output: Intake & Output 02/04/18 02/05/18 02/06/18 02/07/18 11:59 11:59 11:59 11:59 Intake Total 1780 4339 1980 Output Total 3000 3200 Balance 1780 1339 -1220 Weight 96.1 kg 96 kg 95 kg Multi-Disciplinary Progress Notes: Multi-Disciplinary Progress Notes 02/06/18 09:00 (created 02/06/18 13:35) Case Management Note by Marybel Avalos DISCHARGE PLAN REVIEWED, PROVIDES SELF CARE, INDEPENDENT WITH ALL ADL'S. PLANS TO RETURN HOME TO PRE EPISODIC LEVEL OF [facility]. Initialized on 02/06/18 13:35 - END OF NOTE Assessment/Plan (1) Acute exacerbation of chronic obstructive pulmonary disease (COPD) Current Visit: Yes Status: Acute Onset Date: ~02/04/18 Assessment & Plan: improving with IV solu medrol and zithromax, continue nebs. possibly will be ready for discharge tomorrow. Code(s): J44.1 - CHRONIC OBSTRUCTIVE PULMONARY DISEASE W (ACUTE) EXACERBATION
[2018-02-07] MEDS: CLARITIN 10 MG PO SCH (09:31)
[2018-02-07] MEDS: ENOXAPARIN SODIUM SQ SCH (09:31)
[2018-02-07] MEDS: Cymbalta 30 MG Capsule PO SCH ×2 (09:31→23:28)
[2018-02-07] MEDS: Zithromax 500 MG/ 250 ML NaCl Premix 500 MG/250 ML IVPB IV SCH (09:32)
[2018-02-07] MEDS: Pepcid 20 MG PO SCH ×2 (09:32→23:28)
[2018-02-08] MEDS: DUONEB 0.5-3 MG/3 ml Neb IH SCH ×3 (03:47→11:17)
[2018-02-08] MEDS: NORCO 5/325 MG PO PRN ×2 (05:42→11:36)
[2018-02-08] MEDS: solu-MEDROL 125 MG IV SCH ×2 (05:50→11:37)
[2018-02-08 06:15] LABS: ANION GAP 15.9 MEQ/L (5-15); BLOOD UREA NITROGEN 13 mg/dL (7-17); CHLORIDE 100 mmol/L (98-107); Calcium 9.5 mg/dL (8.4-10.2); Carbon Dioxide 29 mmol/L (22-30); Creatinine 1 0.46 mg/dL (0.52-1.04); Glucose 157 mg/dL (74-106); Granulocyte Absolute (ANC) 11.45 (1.4-6.9); Hematocrit 39.5 % (35-47); Hemoglobin 13.4 gm/dl (12.0-16.0); Mean Cell Volume 90.2 fl (78-100); Mean Corpuscular Hemoglobin 30.6 pg (26-32); Mean Corpuscular Hgb Concent. 33.9 g/dl (32-36); Mean Platelet Volume 9.2 fl (6-9.5); Platelet Count 305 K/mm3 (150-450); Potassium 3.4 mmol/L (3.5-5.1); Red Blood Count 4.38 M/mm3 (4.1-5.4); Red Cell Distribution Width 12.6 % (11.5-14.0); SODIUM 141 mmol/L (137-145); White Blood Count 13.9 K/mm3 (4.0-10.5)
[2018-02-08] MEDS ORDERED: TRANDATE 100 MG/20 ML MDV FOR DRIP IV PRN (08:30)
[2018-02-08] MEDS: Zithromax 500 MG/ 250 ML NaCl Premix 500 MG/250 ML IVPB IV SCH (09:00)
[2018-02-08] MEDS: CLARITIN 10 MG PO SCH (09:00)
[2018-02-08] MEDS: ENOXAPARIN SODIUM SQ SCH (09:00)
[2018-02-08] MEDS: Pepcid 20 MG PO SCH (09:01)
[2018-02-08] MEDS: Cymbalta 30 MG Capsule PO SCH (09:01)
[2018-02-08 10:12] LABS: BAND 3 % (0.0-2.0); Lymphocytes 18 % (24-44); Monocyte 3 % (0.0-12.0); Neutrophils 76 % (36.0-66.0); Platelet Estimate NORMAL (NORMAL); Total Cells Counted 100
[2018-02-08 11:35] VITALS: BP 155/80; PULSE 96; O2SAT 92
--- NOTE | 2018-02-08 13:47 | PCM.DS ---
Discharge Summary Date of Admission: 02/06/18 07:51 Admitting Physician: ADRIANA KIRKPATRICK Primary Care Provider: ADIRANA KIRKPATRICK Allergies Allergies No Known Drug Allergies Allergy (Verified 02/04/18 15:26) Hospital Summary - Hospital Course Hospital Course: Pt admitted with COPD exacerbation 2d ago on IV zithromax and solumedrol (80mg IV q6h). Improved over several days and this morning is feeling ready to d/c to home. Her breathing is better, not on any O2. She continues to cough. She works in [employer] so will plan to return to work in 5d (). - Vitals & Intake/Output Vital Signs: Vital Signs Temperature 98.3 F 02/08/18 11:34 Pulse Rate 96 H 02/08/18 11:34 Respiratory Rate 18 02/08/18 11:34 Blood Pressure 155/80 02/08/18 11:34 O2 Sat by Pulse Oximetry 92 L 02/08/18 11:34 Oxygen-Last Documented O2 Percentage 2 Liters = 28% Intake & Output: Intake & Output 02/06/18 02/07/18 02/08/18 02/09/18 11:59 11:59 11:59 11:59 Intake Total 4339 2460 1800 Output Total 3000 3600 1350 Balance 1339 -1140 450 Weight 96 kg 95 kg 95.6 kg - Lab Result Diagrams: 02/08/18 05:15 02/08/18 05:15 Lab Results-Last 24 Hrs: Lab Results-Last 24 Hours 02/08/18 02/08/18 Range/Units 05:15 05:15 WBC 13.9 H (4.0-10.5) K/mm3 RBC 4.38 (4.1-5.4) M/mm3 Hgb 13.4 (12.0-16.0) gm/dl Hct 39.5 (35-47) % MCV 90.2 (78-100) fl MCH 30.6 (26-32) pg MCHC 33.9 (32-36) g/dl RDW 12.6 (11.5-14.0) % Plt Count 305 (150-450) K/mm3 MPV 9.2 (6-9.5) fl Absolute Granulocytes 11.45 H (1.4-6.9) Segmented Neutrophils 76 H (36.0-66.0) % Band Neutrophils 3 H (0.0-2.0) % Lymphocytes (Manual) 18 L (24-44) % Monocytes (Manual) 3 (0.0-12.0) % Platelet Estimate NORMAL (NORMAL) RBC Morphology NORMAL Sodium 141 (137-145) mmol/L Potassium 3.4 L (3.5-5.1) mmol/L Chloride 100 (98-107) mmol/L Carbon Dioxide 29 (22-30) mmol/L Anion Gap 15.9 H (5-15) MEQ/L BUN 13 (7-17) mg/dL Creatinine 0.46 L (0.52-1.04) mg/dL Estimated GFR > 60.0 ML/MIN Glucose 157 H (74-106) mg/dL Calcium 9.5 (8.4-10.2) mg/dL Micro Results-Entire Visit: Microbiology 02/04/18 16:06 Blood Culture - Preliminary Blood NO GROWTH TO DATE 02/04/18 16:06 Blood Culture - Preliminary Blood NO GROWTH TO DATE - Procedures and Test Procedures and Tests throughout Hospitalization: Therapy Orders & Screens 02/04/18 15:33 Respiratory Nebulizer STAT Comment: Diagnosis: Shortness of Breath 02/04/18 15:37 Respiratory Nebulizer STAT Comment: Diagnosis: Shortness of Breath 02/04/18 19:12 Oxygen NASAL CANNULA 2 lpm Comment: Diagnosis: Shortness of Breath Respiratory Nebulizer Q4H Comment: Diagnosis: Shortness of Breath 02/05/18 07:00 Respiratory MDI UD Comment: Diagnosis: Shortness of Breath Discharge Exam General Appearance: no apparent distress, alert Neurologic Exam: oriented x 3, cooperative Skin Exam: normal color, warm, dry, No rash Respiratory Exam: normal breath sounds (good air exchange), lungs clear, wheezing (scattered faint), No crackles/rales, No rhonchi Cardiovascular Exam: regular rate/rhythm, normal heart sounds, No murmur Extremity Exam: No pedal edema, No swelling Back Exam: normal inspection, No rash Final Diagnosis/Problem List - Final Discharge Diagnosis/Problem (1) Acute exacerbation of chronic obstructive pulmonary disease (COPD) Current Visit: Yes Status: Acute Onset Date: ~02/04/18 Assessment & Plan: Will send home on zithromax to finish 5d total. Prednisone for home. F/u with PCP in 1 wk. Pt stopped smoking last year. - Discharge Disposition: Home, Self-Care Condition: Stable Prescriptions: New Prednisone 20 mg [Deltasone 20 mg] 20 mg PO DAILY #17 tablet Azithromycin [Zithromax] 250 mg PO DAILY #1 tablet Continue Albuterol 2.5 mg/3 ml Neb [Proventil 2.5 mg/3 ml Neb] 2.5 mg IH Q4H PRN PRN #30 neb PRN Reason: DIFFICULTY BREATHING Duloxetine HCl 30 mg [Cymbalta 30 MG Capsule] 30 mg PO BID Albuterol Sulfate [Ventolin Hfa] 8 gm IH QID Hydrocodone/Acetaminophen [Hydrocodon-Acetaminophen 5-325] 1 each .ROUTE Q6HPRN PRN PRN Reason: Pain Loratadine 10 mg [Claritin 10 mg] 10 mg PO DAILY Instructions: Exacerbation of COPD (DC) Follow up with: ADRIANA KIRKPATRICK MD [Primary Care Provider] - 02/21/18 2:15 pm Forms: Discharge Instructions, Patient Portal Information, Work/School Release Form
[2018-02-08] MEDS ORDERED: solu-MEDROL 40 MG IV SCH (14:00)
== END 2018-02-08 14:20 | disposition home or self-care (01) | DRG 192 ==
LOC: ED 15:08 → MED SURG 20:51 → OBSVTOIN 02-06 07:51
PROVIDERS: ADMIT Family Medicine; ATTEND Family Medicine
DX: J44.1 Chronic obstructive pulmonary disease with (acute) exacerbation (principal); M25.559 Pain in unspecified hip; M54.9 Dorsalgia, unspecified; G89.29 Other chronic pain; F41.9 Anxiety disorder, unspecified; K21.9 Gastro-esophageal reflux disease without esophagitis; Z79.899 Other long term (current) drug therapy; Z85.43 Personal history of malignant neoplasm of ovary; Z87.891 Personal history of nicotine dependence
CPT/HCPCS: 36000; 36415; 36600; 71045; 80048; 80053; 82375; 82803; 83605; 83735; 83880; 84484; 85025; 85027; 85379; 87040; 93005; 93041; 93268; 94150; 94640; 94760; 96365; 96374; 96375; 99285; G0378; J0456; J1650; J1885; J2930; A9270-GY

== ENCOUNTER 2019-06-02 09:47 | Emergency (ER) | payer OTHER ==
[2019-06-02] MEDS ORDERED: DUONEB 0.5-3 MG/3 ml Neb IH ONE ×2 (10:02→10:05)
--- NOTE | 2019-06-02 10:03 | ERPHSYRPT ---
- History of Present Illness Time Seen by Provider: 06/02/19 09:55 Historian: patient Exam Limitations: no limitations Physician History: 54 y/o white female former smoker presents with a few day h/o cp, soa, cough. overall, she states he just doesnt feel well. pt states she is under a lot of stress. pt stated she was seen by dr. still yesterday. no labs or cxr performed. Timing/Duration: day(s) (a few ) Activities at Onset: none Location: other (left chest into bilat neck) Chest Pain Radiation: neck Severity of Pain-Max: mild Severity of Pain-Current: mild Modifying Factors: Improves With: coughing Associated Symptoms: cough, No shortness of breath Nitro Today/Relief: no nitro taken today Aspirin Treatment Today: no aspirin today Allergies/Adverse Reactions: No Known Drug Allergies Allergy (Verified 02/04/18 15:26) Home Medications: Albuterol Sulfate [Ventolin Hfa] 8 gm IH QID 02/04/18 [History] Duloxetine HCl 30 mg [Cymbalta 30 MG Capsule] 30 mg PO BID 02/04/18 [ History] Hydrocodone/Acetaminophen [Hydrocodon-Acetaminophen 5-325] 1 each .ROUTE Q6HPRN PRN 02/04/18 [History] Loratadine 10 mg [Claritin 10 mg] 10 mg PO DAILY 02/04/18 [History] Celecoxib [Celebrex] 200 mg PO DAILY 06/02/19 [History] Omeprazole 40 mg PO DAILY 06/02/19 [History] Hx Tetanus, Diphtheria Vaccination/Date Given: Yes Hx Influenza Vaccination/Date Given: No Hx Pneumococcal Vaccination/Date Given: Yes - Review of Systems Constitutional: No Symptoms Eyes: No Symptoms Ears, Nose, & Throat: No Symptoms Respiratory: Cough, Wheezing Cardiac: Chest Pain Abdominal/Gastrointestinal: No Symptoms Genitourinary Symptoms: No Symptoms Musculoskeletal: No Symptoms Skin: No Symptoms Neurological: No Symptoms Psychological: No Symptoms Endocrine: No Symptoms Hematologic/Lymphatic: No Symptoms Immunological/Allergic: No Symptoms All Other Systems: Reviewed and Negative - Past Medical History Pertinent Past Medical History: Yes Neurological History: No Pertinent History ENT History: No Pertinent History Cardiac History: No Pertinent History Respiratory History: COPD Endocrine Medical History: No Pertinent History Musculoskeletal History: No Pertinent History GI Medical History: GERD History: No Pertinent History Psycho-Social History: Anxiety Female Reproductive Disorders: Ovarian Cancer Other Medical History: STRESS TEST <6MO AGO - Past Surgical History Past Surgical History: Yes Neuro Surgical History: No Pertinent History Cardiac: No Pertinent History Respiratory: No Pertinent History Gastrointestinal: No Pertinent History Genitourinary: No Pertinent History Musculoskeletal: No Pertinent History Female Surgical History: Section, Hysterectomy - Social History Smoking Status: Former smoker How long have you smoked: 30 Exposure to second hand smoke: No Alcohol Use: Socially Drug Use: methamphetamines Patient Lives Alone: No Significant Family History: other (migraines) - Nursing Vital Signs Nursing Vital Signs: Initial Vital Signs Temperature 98.1 F 06/02/19 09:48 Pulse Rate 86 06/02/19 09:48 Respiratory Rate 20 06/02/19 09:48 Blood Pressure 110/94 06/02/19 09:48 O2 Sat by Pulse Oximetry 93 L 06/02/19 09:48 Pain Scale Pain Intensity 4 - Physical Exam General Appearance: mild distress, alert, anxiety Eye Exam: PERRL/EOMI Ears, Nose, Throat Exam: normal ENT inspection, moist mucous membranes Neck Exam: normal inspection, non-tender, supple, full range of motion Respiratory Exam: chest tenderness, airway intact, wheezing (mild bilat), No respiratory distress Cardiovascular Exam: regular rate/rhythm, normal heart sounds, normal peripheral pulses Pelvic Exam: not done Rectal Exam: not done Back Exam: normal inspection, normal range of motion, No CVA tenderness, No vertebral tenderness Extremity Exam: normal inspection, normal range of motion, pelvis stable Neurologic Exam: alert, oriented x 3, cooperative, spot man II-XII nml as tested Skin Exam: normal color, warm, dry Lymphatic Exam: No adenopathy SpO2 Interpretation: normal O2 Delivery: Room Air - Course Nursing assessment & vital signs reviewed: Yes EKG Interpreted by Me: RATE (84), NORMAL AXIS, NORMAL INTERVALS, NORMAL QRS, Non -specific ST Changes, Other (SI/QIII pattern) Ordered Tests: Active Orders 24 hr Category Date Time Status Cannon Pinion Adjuster STAT Care 06/02/19 10:05 Active EKG-ER Only STAT Care 06/02/19 10:05 Active IV Insertion STAT Care 06/02/19 10:05 Active Pulse Oximetry (ED) STAT Care 06/02/19 10:05 Active CHEST 1 VIEW (PORTABLE) Stat Exams 06/02/19 10:05 Completed CBC W DIFF Stat Lab 06/02/19 10:05 Completed CMP Stat Lab 06/02/19 10:05 Completed D-DIMER QUANTITATION Stat Lab 06/02/19 10:05 Completed NT PRO BNP Stat Lab 06/02/19 10:05 Completed PROTIME WITH INR Stat Lab 06/02/19 10:05 Completed TROPONIN Q3H Lab 06/02/19 10:15 Completed TROPONIN Q3H Lab 06/02/19 13:15 Ordered TROPONIN Q3H Lab 06/02/19 16:15 Ordered TROPONIN Q3H Lab 06/02/19 19:15 Ordered TROPONIN Q3H Lab 06/02/19 22:15 Ordered Peak Expiratory Flow Rate ONCE RT 06/02/19 10:07 Active Respiratory Therapy Assessment DAILY RT 06/02/19 10:07 Active Medication Summary Discontinued Medications Generic Name Dose Route Start Last Admin Trade Name Freq PRN Reason Stop Dose Admin Albuterol/Ipratropium Confirm 06/02/19 10:02 Duoneb 0.5-3 Mg/3 Ml Neb Administered 06/02/19 10:03 Dose 3 ml IH .STK-MED ONE Albuterol/Ipratropium 3 ml 06/02/19 10:05 06/02/19 10:06 Duoneb 0.5-3 Mg/3 Ml Neb IH 06/02/19 10:06 3 ml STAT ONE Administration Aspirin 324 mg 06/02/19 10:05 06/02/19 10:15 Baby Aspirin 81 Mg Chew PO 06/02/19 10:06 324 mg STAT ONE Administration Aspirin Confirm 06/02/19 10:08 Baby Aspirin 81 Mg Chew Administered 06/02/19 10:09 Dose 324 mg .ROUTE .STK-MED ONE Lab/Rad Data: Laboratory Result Diagrams 06/02/19 10:05 06/02/19 10:05 Laboratory Results 06/02/19 06/02/19 06/02/19 Range/Units 10:15 10:05 10:05 WBC (4.0-10.5) K/mm3 RBC (4.1-5.4) M/mm3 Hgb (12.0-16.0) gm/dl Hct (35-47) % MCV (78-100) fl MCH (26-32) pg MCHC (32-36) g/dl RDW (11.5-14.0) % Plt Count (150-450) K/mm3 MPV (6-9.5) fl Gran % (36.0-66.0) % Eos # (Auto) (0-0.5) Absolute Lymphs (auto) (1.0-4.6) Absolute Monos (auto) (0.0-1.3) Lymphocytes % (24.0-44.0) % Monocytes % (0.0-12.0) % Eosinophils % (0.00-5.0) % Basophils % (0.0-0.4) % Absolute Granulocytes (1.4-6.9) Basophils # (0-0.4) PT 11.1 (9.95-12.35) SECONDS INR 0.98 (0.8-3.0) D-Dimer 324 (215-500) ng/mL Sodium 144 (137-145) mmol/L Potassium 4.4 (3.5-5.1) mmol/L Chloride 105 (98-107) mmol/L Carbon Dioxide 28 (22-30) mmol/L Anion Gap 15.3 H (5-15) MEQ/L BUN 12 (7-17) mg/dL Creatinine 0.50 L (0.52-1.04) mg/dL Estimated GFR > 60.0 ML/MIN Glucose 101 (74-106) mg/dL Calcium 9.8 (8.4-10.2) mg/dL Total Bilirubin 0.50 (0.2-1.3) mg/dL AST 45 H (14-36) U/L ALT 26 (0-35) U/L Alkaline Phosphatase 92 (38-126) U/L Troponin I < 0.012 (0.000-0.034) ng/mL NT-Pro-B Natriuret Pep 61.9 (0-900) pg/mL Serum Total Protein 7.9 (6.3-8.2) g/dL Albumin 4.6 (3.5-5.0) g/dL 06/02/19 Range/Units 10:05 WBC 6.1 (4.0-10.5) K/mm3 RBC 4.60 (4.1-5.4) M/mm3 Hgb 13.9 (12.0-16.0) gm/dl Hct 41.0 (35-47) % MCV 89.1 (78-100) fl MCH 30.2 (26-32) pg MCHC 33.9 (32-36) g/dl RDW 12.9 (11.5-14.0) % Plt Count 285 (150-450) K/mm3 MPV 9.1 (6-9.5) fl Gran % 53.5 (36.0-66.0) % Eos # (Auto) 0.33 (0-0.5) Absolute Lymphs (auto) 2.08 (1.0-4.6) Absolute Monos (auto) 0.40 (0.0-1.3) Lymphocytes % 33.9 (24.0-44.0) % Monocytes % 6.5 (0.0-12.0) % Eosinophils % 5.4 H (0.00-5.0) % Basophils % 0.7 (0.0-0.4) % Absolute Granulocytes 3.28 (1.4-6.9) Basophils # 0.04 (0-0.4) PT (9.95-12.35) SECONDS INR (0.8-3.0) D-Dimer (215-500) ng/mL Sodium (137-145) mmol/L Potassium (3.5-5.1) mmol/L Chloride (98-107) mmol/L Carbon Dioxide (22-30) mmol/L Anion Gap (5-15) MEQ/L BUN (7-17) mg/dL Creatinine (0.52-1.04) mg/dL Estimated GFR ML/MIN Glucose (74-106) mg/dL Calcium (8.4-10.2) mg/dL Total Bilirubin (0.2-1.3) mg/dL AST (14-36) U/L ALT (0-35) U/L Alkaline Phosphatase (38-126) U/L Troponin I (0.000-0.034) ng/mL NT-Pro-B Natriuret Pep (0-900) pg/mL Serum Total Protein (6.3-8.2) g/dL Albumin (3.5-5.0) g/dL - Progress Progress: improved Air Movement: good Progress Note: 06/02/19 11:20 cxr- no acute process Blood Culture(s) Obtained: No Antibiotics given: No Counseled pt/family regarding: lab results, diagnosis, need for follow-up, rad results - Departure Departure Disposition: Home Clinical Impression: Chest pain, Cough Condition: Stable Critical Care Time: No Referrals: ADRIANA STILL MD [Primary Care Provider] - Additional Instructions: follow up with dr. still for further management
[2019-06-02] MEDS ORDERED: BABY ASPIRIN 81 MG CHEW PO ONE (10:05)
[2019-06-02] MEDS ORDERED: BABY ASPIRIN 81 MG CHEW ONE (10:08)
[2019-06-02 10:17] LABS: Absolute Neutrophil Ct (ANC) 3.28 (1.4-6.9); BASOPHIL % 0.7 % (0.0-0.4); Basophil (Absolute #) 0.04 (0-0.4); Eosinophil % 5.4 % (0.00-5.0); Eosinophil (Absolute #) 0.33 (0-0.5); Hemoglobin 13.9 gm/dl (12.0-16.0); Lymphocyte (Absolute #) 2.08 (1.0-4.6); Lymphocytes % 33.9 % (24.0-44.0); Mean Cell Volume 89.1 fl (78-100); Mean Corpuscular Hemoglobin 30.2 pg (26-32); Mean Corpuscular Hgb Concent. 33.9 g/dl (32-36); Mean Platelet Volume 9.1 fl (6-9.5); Monocytes % 6.5 % (0.0-12.0); Neutrophil % 53.5 % (36.0-66.0); Platelet Count 285 K/mm3 (150-450); Red Cell Distribution Width 12.9 % (11.5-14.0); White Blood Count 6.1 K/mm3 (4.0-10.5)
[2019-06-02 10:23] LABS: INR 0.98 (0.8-3.0); PROTIME 11.1 SECONDS (9.95-12.35)
[2019-06-02 10:37] LABS: ALBUMIN 4.6 g/dL (3.5-5.0); ALKALINE PHOSPHATASE 92 U/L (38-126); ANION GAP 15.3 MEQ/L (5-15); BLOOD UREA NITROGEN 12 mg/dL (7-17); CHLORIDE 105 mmol/L (98-107); Calcium 9.8 mg/dL (8.4-10.2); Carbon Dioxide 28 mmol/L (22-30); Glucose 101 mg/dL (74-106); NT PRO BNP 61.9 pg/mL (0-900); Potassium 4.4 mmol/L (3.5-5.1); SGOT/AST 45 U/L (14-36); SGPT/ALT 26 U/L (0-35); SODIUM 144 mmol/L (137-145); Total Protein 7.9 g/dL (6.3-8.2)
--- NOTE | 2019-06-02 10:38 | XRAY ---
Indication: Chest pain and cough. Comparison: February 04, 2018. Portable chest demonstrates normal heart and lungs with new minimal left base fibrosis/scarring. Bony thorax intact again with minimal degenerative changes.
[2019-06-02 10:42] VITALS: O2SAT 95
[2019-06-02 11:09] VITALS: BP 123/79; PULSE 70
== END 2019-06-02 11:30 | disposition home or self-care (01) ==
LOC: ED 09:47
DX: R07.89 Other chest pain (principal); R05 Cough; Z79.899 Other long term (current) drug therapy; J44.9 Chronic obstructive pulmonary disease, unspecified
CPT/HCPCS: 36000; 36415; 71045; 80053; 83880; 84484; 85025; 85379; 85610; 93005; 93041; 94150; 94640; 94760; 99284; A9270-GY

== ENCOUNTER 2019-06-17 12:41 | Day surgery (SDC) | payer OTHER ==
[2019-06-17] MEDS ORDERED: Xylocaine-Mpf 2% 5 Ml Vial IJ ONE (12:42)
[2019-06-17] MEDS ORDERED: Depo-Medrol 40 MG/ML IM ONE (12:42)
[2019-06-17] MEDS ORDERED: DIPRIVAN 200 MG/20 ML IV ONE (14:50)
[2019-06-17] MEDS ORDERED: Ketamine HCl 50 MG/ML ONE (14:50)
--- NOTE | 2019-06-17 16:26 | XRAY ---
Indication: Bilateral T3-T6 MBB. Intraoperative fluoroscopy was provided for 27 seconds. Single digital spot image submitted for interpretation demonstrates posterior needle tips projecting over the expected course of the left and right T3-T6 nerve roots. Correlate with intraoperative findings/report.
--- NOTE | 2019-06-17 16:28 | XRAY ---
27 seconds fluoroscopy time in surgery for bilateral T3-T6 MBB.
[2019-06-17] MEDS ORDERED: Lactated Ringers 1,000 ML IV ONE (18:22)
== END 2019-06-17 15:24 | disposition home or self-care (01) ==
LOC: SDC-PAIN 12:41
PROVIDERS: ATTEND Psychiatry & Neurology Pain Medicine
DX: M47.816 Spondylosis without myelopathy or radiculopathy, lumbar region (principal); Z79.899 Other long term (current) drug therapy
CPT/HCPCS: 64490; 64491; 64492; 72020; 77002; J1030; J2704

== ENCOUNTER 2020-12-28 13:07 | Day surgery (SDC) | payer BC ==
[2020-12-28] MEDS ORDERED: Depo-Medrol 40 MG/ML IM ONE (13:08)
[2020-12-28] MEDS ORDERED: Xylocaine 1% Vial 30 ML PF IJ ONE (13:08)
[2020-12-28] MEDS ORDERED: Sodium Chloride 0.9(Preservative Free) 10 ML IJ ONE (13:08)
[2020-12-28] MEDS ORDERED: DIPRIVAN 200 MG/20 ML IV ONE (14:55)
[2020-12-28] MEDS ORDERED: Lactated Ringers 1,000 ML IV ONE (16:21)
--- NOTE | 2020-12-28 16:44 | XRAY ---
Indication: Lumbar MARIA EUGENIA. Intraoperative fluoroscopy provided for 12 seconds. Single lateral digital spot image submitted for interpretation demonstrates posterior needle tip projecting posterior to L4-L5 interspace. Small amount of contrast injected for needle tip placement. Correlate with intraoperative findings/report.
--- NOTE | 2020-12-28 16:50 | XRAY ---
12 seconds fluoroscopy time in surgery for lumbar MARIA EUGENIA.
== END 2020-12-28 15:20 | disposition home or self-care (01) ==
LOC: SDC-PAIN 13:07
PROVIDERS: ATTEND Psychiatry & Neurology Pain Medicine
DX: M54.16 Radiculopathy, lumbar region (principal); M19.90 Unspecified osteoarthritis, unspecified site; C56.9 Malignant neoplasm of unspecified ovary; Z79.899 Other long term (current) drug therapy
CPT/HCPCS: 62323; 72100; 77003; J1030; J2001; J2704; Q9966

== ENCOUNTER 2021-09-21 11:21 | Emergency (ER) | payer BC ==
--- NOTE | 2021-09-21 12:09 | ERPHSYRPT ---
- History of Present Illness Time Seen by Provider: 09/21/21 11:34 Source: patient Exam Limitations: no limitations Patient Subjective Stated Complaint: Pt was at work when her heart rate suddenly accelerated to the 170's and was taken by nurses at [place] T[facility] Nursing Assessment: Pt brought to the ER by EMS, hypertensive, denies any new pain, not tachycardic at this time, denies any heart issues in the past, states that she broke out into a cold sweat and her heart was racing and was lightheaded and it lasted for approx 20-30 min and then an ambulance was called, pt thinks that her pulse usually runs in the 80's, pulses normal, skin n/w/d, doesn't appear to be in any distress at this time Physician History: 56-year-old female presented in the ER with chief complaint of sudden onset palpitations while at work almost half an hour prior to arrival. Patient reports mild chest tightness and skipping beat, checked her heart rate which was in 170s by a nurse at work. On EMS arrival patient heart rate is in 90s. Denies any difficulty breathing, fever chills but does have some head cold and took a small dose of NyQuil last night. Denies any cough or sick contact. Patient is currently in upper 90s not in any distress at all. Denies any lower extremity swelling or history of DVT/PE. Timing/Duration: today, resolved prior to arrival, sudden, improved Severity: moderate Allergies/Adverse Reactions: No Known Drug Allergies Allergy (Verified 09/21/21 11:37) Home Medications: Albuterol Sulfate [Ventolin Hfa] 8 gm IH QID 02/04/18 [History] Duloxetine HCl 30 mg [Cymbalta 30 MG Capsule] 30 mg PO BID 02/04/18 [History] Hydrocodone/Acetaminophen [Hydrocodon-Acetaminophen 5-325] 1 each .ROUTE Q6HPRN PRN 02/04/18 [History] Celecoxib [Celebrex] 200 mg PO DAILY 06/02/19 [History] Semaglutide [Ozempic] 0.25 mg SQ WEEKLY 09/21/21 [History] Hx Tetanus, Diphtheria Vaccination/Date Given: Yes Hx Influenza Vaccination/Date Given: No Hx Pneumococcal Vaccination/Date Given: Yes Travel Risk - International Travel Have you traveled outside of the country in past 3 weeks: No - Coronavirus Screening Are you exhibiting any of the following symptoms?: No Close contact with a COVID-19 positive Pt in past 14-21 Days: No - Vaccine Status Have you recieved a Covid-19 vaccination: Yes [employer]: Pfizer - Vaccination Dates Date of 2cond Vaccination (if applicable): 09/2021 - Review of Systems Constitutional: No Symptoms Eyes: No Symptoms Ears, Nose, & Throat: No Symptoms Respiratory: No Symptoms Cardiac: Palpitations Abdominal/Gastrointestinal: No Symptoms Genitourinary Symptoms: No Symptoms Musculoskeletal: No Symptoms Skin: No Symptoms Neurological: No Symptoms Psychological: No Symptoms Endocrine: No Symptoms Hematologic/Lymphatic: No Symptoms Immunological/Allergic: No Symptoms - Past Medical History Pertinent Past Medical History: Yes Neurological History: No Pertinent History ENT History: No Pertinent History Cardiac History: No Pertinent History Respiratory History: COPD Endocrine Medical History: No Pertinent History Musculoskeletal History: Osteoarthritis GI Medical History: GERD History: No Pertinent History Psycho-Social History: Anxiety Female Reproductive Disorders: Ovarian Cancer Other Medical History: SHOTS IN HER BACK FOR BACK PAIN. - Past Surgical History Past Surgical History: Yes Neuro Surgical History: No Pertinent History Cardiac: No Pertinent History Respiratory: No Pertinent History Gastrointestinal: No Pertinent History Genitourinary: No Pertinent History Musculoskeletal: No Pertinent History Female Surgical History: Section, Hysterectomy - Social History Smoking Status: Former smoker How long have you smoked: 30 Exposure to second hand smoke: Yes Alcohol Use: Socially Drug Use: none Patient Lives Alone: No Significant Family History: other (migraines) - Female History Hx Now: No - Nursing Vital Signs Nursing Vital Signs: Initial Vital Signs Temperature 98.7 F 09/21/21 11:24 Pulse Rate 100 H 09/21/21 11:24 Respiratory Rate 17 09/21/21 11:24 Blood Pressure 146/84 09/21/21 11:24 O2 Sat by Pulse Oximetry 98 09/21/21 11:24 Pain Scale Pain Intensity 0 - Physical Exam General Appearance: no apparent distress, alert Eye Exam: PERRL/EOMI, eyes nml inspection Ears, Nose, Throat Exam: normal ENT inspection, TMs normal, pharynx normal, moist mucous membranes Neck Exam: normal inspection, non-tender, supple, full range of motion Respiratory Exam: normal breath sounds, lungs clear Cardiovascular Exam: regular rate/rhythm, normal heart sounds Gastrointestinal/Abdomen Exam: soft, normal bowel sounds, No tenderness Back Exam: normal inspection, normal range of motion Extremity Exam: normal inspection, normal range of motion Neurologic Exam: alert, oriented x 3, cooperative, geometry tutor II-XII nml as tested, normal mood/affect Skin Exam: normal color SpO2 Interpretation: normal SpO2: 98 O2 Delivery: Room Air - Course EKG Interpreted by Me: RATE ([id number]), Sinus Rhythm, NORMAL AXIS, NORMAL INTERVALS, NORMAL QRS Ordered Tests: Active Orders 24 hr Category Date Time Status EKG-ER Only STAT Care 09/21/21 13:30 Active CHEST 1 VIEW (PORTABLE) Stat Exams 09/21/21 12:01 Completed CBC W DIFF Stat Lab 09/21/21 12:05 Completed CMP Stat Lab 09/21/21 12:05 Completed D-DIMER QUANTITATIVE Stat Lab 09/21/21 12:05 Completed NT PRO BNP Stat Lab 09/21/21 12:05 Completed TROPONIN Q3H Lab 09/21/21 12:05 Completed TROPONIN Q3H Lab 09/21/21 15:35 Completed TROPONIN Q3H Lab 09/21/21 18:15 Ordered TROPONIN Q3H Lab 09/21/21 21:15 Ordered TROPONIN Q3H Lab 09/22/21 00:15 Ordered TSH, 3RD Generation Stat Lab 09/21/21 12:05 Completed Lab/Rad Data: Laboratory Result Diagrams 09/21/21 12:05 09/21/21 12:05 Laboratory Results 09/21/21 09/21/21 09/21/21 Range/Units 15:35 12:05 12:05 WBC (4.0-10.5) K/mm3 RBC (4.1-5.4) M/mm3 Hgb (12.0-16.0) gm/dl Hct (35-47) % MCV (78-100) fl MCH (26-32) pg MCHC (32-36) g/dl RDW (11.5-14.0) % Plt Count (150-450) K/mm3 MPV (7.5-11.0) fl Gran % (36.0-66.0) % Eos # (Auto) (0-0.5) Absolute Lymphs (auto) (1.0-4.6) Absolute Monos (auto) (0.0-1.3) Lymphocytes % (24.0-44.0) % Monocytes % (0.0-12.0) % Eosinophils % (0.00-5.0) % Basophils % (0.0-0.4) % Absolute Granulocytes (1.4-6.9) Basophils # (0-0.4) D-Dimer 448 (215-500) ng/mL Sodium (137-145) mmol/L Potassium (3.5-5.1) mmol/L Chloride (98-107) mmol/L Carbon Dioxide (22-30) mmol/L Anion Gap (5-15) MEQ/L BUN (7-17) mg/dL Creatinine (0.52-1.04) mg/dL Estimated GFR ML/MIN Glucose (74-106) mg/dL Calcium (8.4-10.2) mg/dL Total Bilirubin (0.2-1.3) mg/dL AST (14-36) U/L ALT (0-35) U/L Alkaline Phosphatase (38-126) U/L Troponin I < 0.012 < 0.012 (0.000-0.034) ng/mL NT-Pro-B Natriuret Pep (0-900) pg/mL Serum Total Protein (6.3-8.2) g/dL Albumin (3.5-5.0) g/dL TSH 3rd Generation (0.47-4.68) mIU/L 09/21/21 09/21/21 Range/Units 12:05 12:05 WBC 7.2 (4.0-10.5) K/mm3 RBC 4.13 (4.1-5.4) M/mm3 Hgb 12.3 (12.0-16.0) gm/dl Hct 37.8 (35-47) % MCV 91.5 (78-100) fl MCH 29.8 (26-32) pg MCHC 32.5 (32-36) g/dl RDW 13.1 (11.5-14.0) % Plt Count 275 (150-450) K/mm3 MPV 9.2 (7.5-11.0) fl Gran % 52.5 (36.0-66.0) % Eos # (Auto) 0.44 (0-0.5) Absolute Lymphs (auto) 2.52 (1.0-4.6) Absolute Monos (auto) 0.43 (0.0-1.3) Lymphocytes % 35.1 (24.0-44.0) % Monocytes % 6.0 (0.0-12.0) % Eosinophils % 6.1 H (0.00-5.0) % Basophils % 0.3 (0.0-0.4) % Absolute Granulocytes 3.76 (1.4-6.9) Basophils # 0.02 (0-0.4) D-Dimer (215-500) ng/mL Sodium 140 (137-145) mmol/L Potassium 4.2 (3.5-5.1) mmol/L Chloride 103 (98-107) mmol/L Carbon Dioxide 28 (22-30) mmol/L Anion Gap 13.6 (5-15) MEQ/L BUN 15 (7-17) mg/dL Creatinine 0.60 (0.52-1.04) mg/dL Estimated GFR > 60.0 ML/MIN Glucose 99 (74-106) mg/dL Calcium 9.4 (8.4-10.2) mg/dL Total Bilirubin 0.50 (0.2-1.3) mg/dL AST 43 H (14-36) U/L ALT 39 H (0-35) U/L Alkaline Phosphatase 99 (38-126) U/L Troponin I (0.000-0.034) ng/mL NT-Pro-B Natriuret Pep 84.4 (0-900) pg/mL Serum Total Protein 7.1 (6.3-8.2) g/dL Albumin 4.3 (3.5-5.0) g/dL TSH 3rd Generation 1.820 (0.47-4.68) mIU/L - Progress Progress: improved Progress Note: 09/21/21 16:55 Patient has sinus rhythm on presentation. Remained asymptomatic. Grossly unremarkable work-up including troponins x2 and D-dimers. Chest x-ray negative. Do not know exactly what was the rhythm as it was before EMS arrival and improved. Patient have seen Dr. Cooper in the past and I have advised her to follow-up with him for reevaluation. Discussed signs symptoms of worsening needing return to ER which she seems understanding. Stable for discharge. Counseled pt/family regarding: lab results, diagnosis, need for follow-up, rad results - Departure Departure Disposition: Home Clinical Impression: Palpitations Condition: Stable Critical Care Time: No Referrals: ADRIANA KIRKPATRICK MD [Primary Care Provider] - Follow up/PCP as directed (1-2 days for reevaluation) Ismael Cooper MD [CONSULTING PHYSICIAN] - Follow up/PCP as directed (Call tomorrow for appointment for evaluation) Instructions: Tachycardia (DC), Palpitations (DC) Additional Instructions: Do not take [id number] cough congestion medications. Keep yourself well- hydrated. Follow-up with primary care and cardiology for reevaluation. Return to ER for any worsening palpitations or having difficulty breathing, chest pain etc.
--- NOTE | 2021-09-21 12:30 | XRAY ---
Indication: Palpitations. Atrophic ablation. Comparison: June 02, 2019. Portable chest unchanged again demonstrating minimal left base fibrosis/scarring. Remaining heart and lungs normal. Bony thorax intact with minimal degenerative changes. No new/acute findings.
[2021-09-21 12:33] LABS: Absolute Neutrophil Ct (ANC) 3.76 (1.4-6.9); Basophil (Absolute #) 0.02 (0-0.4); Eosinophil % 6.1 % (0.00-5.0); Eosinophil (Absolute #) 0.44 (0-0.5); Hematocrit 37.8 % (35-47); Hemoglobin 12.3 gm/dl (12.0-16.0); Lymphocyte (Absolute #) 2.52 (1.0-4.6); Lymphocytes % 35.1 % (24.0-44.0); Mean Cell Volume 91.5 fl (78-100); Mean Corpuscular Hemoglobin 29.8 pg (26-32); Mean Corpuscular Hgb Concent. 32.5 g/dl (32-36); Mean Platelet Volume 9.2 fl (7.5-11.0); Monocyte (Absolute #) 0.43 (0.0-1.3); Neutrophil % 52.5 % (36.0-66.0); Platelet Count 275 K/mm3 (150-450); Red Blood Count 4.13 M/mm3 (4.1-5.4); Red Cell Distribution Width 13.1 % (11.5-14.0); White Blood Count 7.2 K/mm3 (4.0-10.5)
[2021-09-21 13:24] LABS: ALBUMIN 4.3 g/dL (3.5-5.0); ALKALINE PHOSPHATASE 99 U/L (38-126); ANION GAP 13.6 MEQ/L (5-15); BLOOD UREA NITROGEN 15 mg/dL (7-17); CHLORIDE 103 mmol/L (98-107); Calcium 9.4 mg/dL (8.4-10.2); Carbon Dioxide 28 mmol/L (22-30); EST GLOMERULAR FILTRATION RATE > 60.0 ML/MIN; Glucose 99 mg/dL (74-106); NT PRO BNP 84.4 pg/mL (0-900); Potassium 4.2 mmol/L (3.5-5.1); SGOT/AST 43 U/L (14-36); SGPT/ALT 39 U/L (0-35); SODIUM 140 mmol/L (137-145); Total Protein 7.1 g/dL (6.3-8.2)
[2021-09-21 14:24] VITALS: PULSE 84
[2021-09-21 15:20] VITALS: BP 94/54
[2021-09-21 16:58] VITALS: O2SAT 98
== END 2021-09-21 17:09 | disposition home or self-care (01) ==
LOC: ED 11:21
DX: R00.2 Palpitations (principal); R07.9 Chest pain, unspecified; J44.9 Chronic obstructive pulmonary disease, unspecified; K21.9 Gastro-esophageal reflux disease without esophagitis; Z79.891 Long term (current) use of opiate analgesic; Z79.899 Other long term (current) drug therapy
CPT/HCPCS: 36415; 71045; 80053; 83880; 84443; 84484; 85025; 85379; 93005; 99284